=== PATIENT | female | born 1955 | race Caucasian/White ===

== ENCOUNTER 2019-06-26 00:26 | Emergency (ER) | payer MEDICAID ==
[~2019-06-26] VITALS: Ht 165.1 cm; Wt 86.6 kg
[~2019-06-26 00:26] MED LIST: ASPI-231; BENA10TA9; FURO40TA4; POTA8TAB2
[2019-06-26 01:09] VITALS: BP 144/92
== END 2019-06-26 05:12 | disposition home or self-care (01) ==
LOC: ER 00:32
DX: H72.91 Unspecified perforation of tympanic membrane, right ear (principal); I11.0 Hypertensive heart disease with heart failure; I50.9 Heart failure, unspecified; Z79.82 Long term (current) use of aspirin; Z79.899 Other long term (current) drug therapy